=== PATIENT | female | born 1945 | race Caucasian/White ===

== ENCOUNTER 2018-03-22 10:10 | Emergency (ER) | payer MEDICARE, OTHER ==
[2018-03-22] MEDS ORDERED: ASPIRIN 81 MG TABLET, CHEWABLE PO ONE (10:32)
--- NOTE | 2018-03-22 10:33 | ER Document Report ---
ED Medical Screen (RME) - General Chief Complaint: Flank Pain Stated Complaint: ABODOMINAL/BACK PAIN Time Seen by Provider: 03/22/18 10:31 Notes: 72 years old female on metoprolol, Cardizem, flecainide for atrial fibrillation presents today with nearly 2 weeks history of on and off dizziness lightheadedness and one time passed out. And feeling dizzy. Denies any fever chills denies any chest pain denies any palpitation. Denies any other constitutional symptoms. TRAVEL OUTSIDE OF THE [place] IN LAST 30 DAYS: No - Related Data Allergies/Adverse Reactions: Iodine and Iodide Containing Produc Allergy (Verified 03/22/18 10:11) Penicillins Allergy (Verified 03/22/18 10:11) Past Medical History Renal/ Medical History: Denies: Hx Peritoneal Dialysis Physical Exam - Vital signs Vitals: Temp Pulse Resp BP Pulse Ox 98.1 F 82 16 153/76 H 96 03/22/18 10:31 03/22/18 10:31 03/22/18 10:31 03/22/18 10:31 03/22/18 10:31 Course - Vital Signs Vital signs: Temp Pulse Resp BP Pulse Ox 98.1 F 82 16 153/76 H 96 03/22/18 10:31 03/22/18 10:31 03/22/18 10:31 03/22/18 10:31 03/22/18 10:31 Doctor's Discharge - Discharge Referrals: JAY BRAXTON PA-C [Primary Care Provider] - Follow up as needed
[2018-03-22 10:59] LABS: ABSOLUTE BASOPHILS # (AUTO) 0.1 10^3/uL (0.0-0.2); ABSOLUTE EOSINOPHILS # (AUTO) 0.3 10^3/uL (0.0-0.6); ABSOLUTE LYMPHOCYTES (AUTO) 3.1 10^3/uL (0.5-4.7); ABSOLUTE MONOCYTES (AUTO) 0.8 10^3/uL (0.1-1.4); ABSOLUTE NEUT (AUTO) 5.9 10^3/uL (1.7-8.2); BASOPHILS % (AUTO) 0.8 % (0-2); EOSINOPHILS % (AUTO) 2.6 % (0-6); HEMATOCRIT 42.4 % (36.0-47.0); HEMOGLOBIN 14.4 g/dL (12.0-15.5); LYMPHOCYTES % (AUTO) 30.5 % (13-45); MEAN CORPUSCULAR HEMOGLOBIN 29.4 pg (27.0-33.4); MEAN CORPUSCULAR HGB CONC 34.1 g/dL (32.0-36.0); MEAN CORPUSCULAR VOLUME 86 fl (80-97); MONOCYTES % (AUTO) 7.9 % (3-13); PLATELET COUNT 262 10^3/uL (150-450); RED BLOOD COUNT 4.92 10^6/uL (3.72-5.28); RED CELL DISTRIBUTION WIDTH 14.9 % (11.5-14.0); SEGMENTED NEUTROPHILS % (AUTO) 58.2 % (42-78); TOTAL CELLS COUNTED % (AUTO) 100 %; WHITE BLOOD COUNT 10.2 10^3/uL (4.0-10.5)
[2018-03-22 11:14] LABS: ALBUMIN 4.1 g/dL (3.5-5.0); ASPARTATE AMINO TRANSFERASE 19 U/L (14-36); BLOOD UREA NITROGEN 16 mg/dL (7-20); CARBON DIOXIDE 29 mmol/L (22-30); GLUCOSE 172 mg/dL (75-110); NEONATAL BILIRUBIN RESULT 0.8 mg/dL (0.1-1.1)
[2018-03-22 11:18] LABS: ALANINE AMINOTRANSFERASE 19 U/L (9-52); ALKALINE PHOSPHATASE 71 U/L (38-126); CALCIUM 9.6 mg/dL (8.4-10.2); CREATINE KINASE 66 U/L (30-135)
[2018-03-22 11:20] LABS: ANION GAP 13 (5-19); CHLORIDE 101 mmol/L (98-107); SODIUM 142.9 mmol/L (137-145)
[2018-03-22 11:22] LABS: BILIRUBIN,DIRECT 0.2 mg/dL (0.0-0.4)
[2018-03-22 11:25] LABS: CREATINE KINASE MB 0.49 ng/mL (<4.55)
[2018-03-22 11:27] LABS: TROPONIN I < 0.012 ng/mL
--- NOTE | 2018-03-22 11:47 | ER Document Report ---
ED General - General Chief Complaint: Flank Pain Stated Complaint: ABODOMINAL/BACK PAIN Time Seen by Provider: 03/22/18 10:31 TRAVEL OUTSIDE OF THE [place] IN LAST 30 DAYS: No - HPI Notes: Patient is a 72-year-old female with a history of paroxysmal A. fib (on Xarelto) , hypertension, type 2 diabetes, acid reflux, anxiety, prev CA lower abd who presents to the ED with vague symptoms of feeling that she has a split second of losing consciousness, but regaining it immediately with no other residual effects. Patient describes this as seeing a flash in front of both of her eyes and then feeling like she passes out, but does not lose consciousness completely. She has never had any other issues with her vision and has regular eye exams per pt. Patient states that by standards cannot even tell when she has an episode. Patient states that she had 4 episodes yesterday 1 of which she was walking to the bathroom and then had the symptoms, but did not fall. Patient states that after the split second she completed her walk to the bathroom without difficulties. A couple of the other episodes were when she was sitting down. She has not noticed any changes in her symptoms from standing , walking, or sitting. Patient states that this has been going on for 1-2 months. Patient states that there are days where she has no problems. Patient states that she did not have any symptoms today of that. Patient states that she has been evaluated previously by her primary care doctor, but they did not order anything for her. Patient states that she does not notice a correlation between when she goes into A. fib and the symptoms. Patient states that she has been in rhythm recently. She has been taking her medicines as directed. Patient states that she has been eating and drinking without difficulties and is urinating normally as well as having normal bowel movements. Patient states that she has chronic abdominal pain from her cancer surgery which has remained unchanged for her. Patient states that she has had some lower back soreness that will occasionally radiate around to her sides bilaterally and is worse with movements. Patient denies any injury to the area. She has no other concerns or complaints. Denies any headache, fever, head injury, neck pain, changes in speech/mentation/hearing, URI, sore throat, chest pain, palpitations , syncope, cough, shortness of breath, wheeze, dyspnea, nausea/vomiting/diarrhea , urinary retention, dysuria, hematuria, loss of control of bowel or bladder, numbness/tingling, saddle anesthesia, muscle paralysis/weakness, or rash. - Related Data Allergies/Adverse Reactions: Iodine and Iodide Containing Produc Allergy (Verified 03/22/18 10:11) Penicillins Allergy (Verified 03/22/18 10:11) Past Medical History - Social History Smoking Status: Never Smoker Family History: Reviewed & Not Pertinent Patient has suicidal ideation: No Patient has homicidal ideation: No Renal/ Medical History: Denies: Hx Peritoneal Dialysis Review of Systems - Review of Systems -: Yes All other systems reviewed and negative Physical Exam - Vital signs Vitals: Temp Pulse Resp BP Pulse Ox 98.1 F 82 16 153/76 H 96 03/22/18 10:31 03/22/18 10:31 03/22/18 10:31 03/22/18 10:31 03/22/18 10:31 - Notes Notes: PHYSICAL EXAMINATION: GENERAL: Well-appearing, well-nourished and in no acute distress. A&Ox4. Answers questions appropriately. HEAD: Atraumatic, normocephalic. Non-tender. EYES: Pupils equal round and reactive to light, extraocular movements intact, sclera anicteric, conjunctiva are normal. No nystagmus. vis basurto intact. No nystagmus. ENT: EAC clear b/l. TM's intact b/l without erythema, fluid, or perforation. Nares patent and without discharge. oropharynx clear without exudates. No tonsilar hypertrophy or erythema. Moist mucous membranes. No sinus tenderness. NECK: Normal range of motion, supple without lymphadenopathy. No rigidity/ meningismus. No midline tenderness. LUNGS: Breath sounds clear to auscultation bilaterally and equal. No wheezes rales or rhonchi. HEART: Regular rate and rhythm without murmurs, rubs, gallops. ABDOMEN: Soft, nontender, nondistended abdomen. No guarding, no rebound. Normal bowel sounds present. No CVA tenderness bilaterally. Musculoskeletal: Ext b/l: FROM to passive/active. Strength 5+/5. No deficits noted. No bony tenderness of extremities. Back: FROM to passive/active. Strength 5+/5. No vertebral point tenderness, stepoffs, or deformities. No other bony tenderness, erythema, swelling, or ecchymosis. SLR negative b/l. + mild tenderness to the L-paraspinal mm b/l. No SI jt tenderness. No foot drop Extremities: No cyanosis, clubbing, or edema b/l. Peripheral pulses 2+. Capillary refill less than 2 seconds. NEUROLOGICAL: NIH 0. GCS 15. Cranial nerves grossly intact. Normal speech, normal gait. Normal sensory, motor exams. Reflexes 2+ b/l. NICOL's negative. Pronator drift negative. Heel/sosa, finger/nose wnl. Rhomberg neg. PSYCH: Normal mood, normal affect. SKIN: Warm, Dry, normal turgor, no rashes or lesions noted. Course - Re-evaluation Re-evalutation: 03/22/18 13:55 Patient is an afebrile, well-hydrated 72-year-old female who presents to the ED with vague feeling of light-headedness, chronic abd pain, and low back pain. Vitals are acceptable without any significant tachycardia, tachypnea, or hypoxia. PE is otherwise unremarkable. Patient is nontoxic-appearing and is tolerating p.o. without any difficulties. Pt is currently asymptomatic for her head complaint(s). CBC, CMP, EKG/cardiac enzymes, magn, phosph, tsh, UA, chest x-ray are all unremarkable for any acute pathology. Patient has a heart score of 3, Wells score of 0. Patient does not have any chest pain, dyspnea, or shortness of breath. Patient's presentation and symptomatology creates low suspicion for ACS, PE, pneumothorax, pericarditis, dissection, respiratory compromise, severe dehydration, sepsis, meningitis, disc herniation causing severe spinal stenosis, spinal abscess, cauda equina, acute intracranial pathology, or other systemic emergent condition at this time. Patient is aware that this condition can change from initial presentation and she needs to monitor symptoms closely and seek medical attention for any acute changes. Reviewed with Dr. Vicente who is in agreement with dispo/plan. Recommend conservative measures for symptoms. Recheck with your PCM in 2-3 days. Consider consult with Cardiology. Return to the ED with any worsening/ concerning symptoms otherwise as reviewed in discharge. Patient is in agreement. - Vital Signs Vital signs: Temp Pulse Resp BP Pulse Ox 98.1 F 69 14 155/80 H 86 L 03/22/18 10:31 03/22/18 13:01 03/22/18 13:00 03/22/18 13:01 03/22/18 13:00 - Laboratory Result Diagrams: 03/22/18 10:45 03/22/18 10:45 Laboratory results interpreted by me: 03/22/18 03/22/18 03/22/18 10:45 10:45 11:30 RDW 14.9 H Glucose 172 H Urine Blood SMALL H Discharge - Discharge Clinical Impression: Light headedness, Visual disturbance, Chronic abdominal pain Low back pain Qualifiers: Chronicity: acute Back pain laterality: bilateral Sciatica presence: without sciatica Qualified Code(s): M54.5 - Low back pain Condition: Stable Disposition: HOME, SELF-CARE Instructions: Abdominal Pain ([facility]), Low Back Pain ([facility]), Stretching Exercises for the Back ([facility]) Additional Instructions: Rest, Ice, Compression Tylenol/ibuprofen as needed Light stretches daily Strength exercises as able healthy diet, maintain hydration Moist heat and massage may help F/u with your PCP in 3-5 days for a recheck Consider consult(s) with Cardiology for ongoing/worsening symptoms Return to the ED with any worsening symptoms and/or development of fever, headache, changes in behavior/mentation/vision/speech, chest pain, palpitations , syncope, shortness of breath, trouble breathing, abdominal pain, n/v/d, blood in stool/urine, loss of control of bowel/bladder, urinary retention, muscle weakness/paralysis, saddle anesthesia, numbness/tingling, or other worsening symptoms that are concerning to you. Forms: Elevated Blood Pressure Referrals: JAY BRAXTON PA-C [Primary Care Provider] - 03/26/18
--- NOTE | 2018-03-22 12:12 | RADIOLOGY REPORT (SQ) ---
EXAM DESCRIPTION: CT HEAD WITHOUT COMPLETED DATE/TIME: 03/22/2018 11:57 am REASON FOR STUDY: visual disturbance COMPARISON: None. TECHNIQUE: Axial images acquired through the brain without intravenous contrast. Images reviewed wi th bone, brain and subdural windows. Additional sagittal and coronal reconstructions were generated. Images stored on PACS. All CT scanners at this facility use dose modulation, iterative reconstruction, and/or weight based d osing when appropriate to reduce radiation dose to as low as reasonably achievable (ALARA). [facility]: Dose Right [facility]: CareDose [facility]: Dose Right [facility]: Teradose 4D [facility]: Digital Ally RADIATION DOSE: CT Rad equipment meets quality standard of care and radiation dose reduction techniq ues were employed. CTDIvol: 53.2 mGy. DLP: 964 mGy-cm. mGy. LIMITATIONS: None. FINDINGS: VENTRICLES: Normal size and contour. CEREBRUM: No masses. No hemorrhage. No midline shift. No evidence for acute infarction. Normal gra y/white matter differentiation. No areas of low density in the white matter. CEREBELLUM: No masses. No hemorrhage. No alteration of density. No evidence for acute infarction. EXTRAAXIAL SPACES: No fluid collections. No masses. ORBITS AND GLOBE: No intra- or extraconal masses. Normal contour of globe without masses. CALVARIUM: No fracture. PARANASAL SINUSES: No fluid or mucosal thickening. SOFT TISSUES: No mass or hematoma. OTHER: No other significant finding. IMPRESSION: NORMAL BRAIN CT WITHOUT CONTRAST. EVIDENCE OF ACUTE STROKE: NO. COMMENT: Quality ID # [id number]: Final reports with documentation of one or more dose reduction techniques (e.g., Automated exposure control, adjustment of the mA and/or kV according to patient size, use of iterative reconstruction technique) TECHNICAL DOCUMENTATION: JOB ID: [id number] [employer]- All Rights Reserved Reading location - IP/workstation name: [email or web address]
--- NOTE | 2018-03-22 12:14 | RADIOLOGY REPORT (SQ) ---
EXAM DESCRIPTION: CHEST SINGLE VIEW COMPLETED DATE/TIME: 03/22/2018 11:57 am REASON FOR STUDY: Cough COMPARISON: None. EXAM PARAMETERS: NUMBER OF VIEWS: One view. TECHNIQUE: Single frontal radiographic view of the chest acquired. RADIATION DOSE: NA LIMITATIONS: None. FINDINGS: LUNGS AND PLEURA: No opacities, masses or pneumothorax. No pleural effusion. MEDIASTINUM AND HILAR STRUCTURES: No masses. Contour normal. HEART AND VASCULAR STRUCTURES: Heart normal in size. Normal vasculature. BONES: No acute findings. HARDWARE: None in the chest. OTHER: No other significant finding. IMPRESSION: NO ACUTE RADIOGRAPHIC FINDING IN THE CHEST. TECHNICAL DOCUMENTATION: JOB ID: [id number] [employer]- All Rights Reserved Reading location - IP/workstation name: [email or web address]
--- NOTE | 2018-03-22 12:17 | RADIOLOGY REPORT (SQ) ---
EXAM DESCRIPTION: L SPINE WHOLE COMPLETED DATE/TIME: 03/22/2018 11:57 am REASON FOR STUDY: low back pain COMPARISON: None. NUMBER OF VIEWS: Five views including obliques. TECHNIQUE: AP, lateral, oblique, and sacral radiographic images acquired of the lumbar spine. LIMITATIONS: None. FINDINGS: MINERALIZATION: Normal. SEGMENTATION: Normal. No transitional anatomy. ALIGNMENT: Normal. VERTEBRAE: No acute fracture. DISCS: Multilevel disc space narrowing with osteophytes. POSTERIOR ELEMENTS: Pedicles and facets are intact. No pars defect or posterior arch defects. Facet arthropathy is present. HARDWARE: None in the spine. PARASPINAL SOFT TISSUES: Normal. PELVIS: Intact as visualized. No fractures or worrisome bone lesions. SI joints intact. OTHER: No other significant finding. IMPRESSION: Spondylosis. No acute findings. TECHNICAL DOCUMENTATION: JOB ID: [id number] [employer]- All Rights Reserved Reading location - IP/workstation name: [email or web address]
[2018-03-22 13:38] VITALS: BP 170/73
[2018-03-22 14:05] LABS: APPEARANCE,URINE CLEAR; BILIRUBIN,URINE NEGATIVE (NEGATIVE); COLOR,URINE STRAW; GLUCOSE, URINE NEGATIVE (NEGATIVE); KETONES,URINE NEGATIVE (NEGATIVE); LEUKOCYTE ESTERASE,URINE NEGATIVE (NEGATIVE); NITRITE,URINE NEGATIVE (NEGATIVE); PROTEIN,URINE NEGATIVE (NEGATIVE); URINE SPECIFIC GRAVITY 1.006; UROBILINOGEN,URINE NEGATIVE mg/dL (<2.0)
--- NOTE | 2018-03-22 14:10 | EKG REPORT ---
SEVERITY:- ABNORMAL ECG - SINUS RHYTHM PROBABLE LEFT ATRIAL ABNORMALITY DIFFUSE NONSPECIFIC ST-T CHANGES. : Confirmed by: Mich Corey MD 22-Mar-2018 14:09:48
== END 2018-03-22 14:42 | disposition home or self-care (01) ==
LOC: ER 10:10
DX: R42 Dizziness and giddiness (principal); H53.8 Other visual disturbances; M54.5 Low back pain; R10.9 Unspecified abdominal pain; G89.29 Other chronic pain; I48.0 Paroxysmal atrial fibrillation; Z79.01 Long term (current) use of anticoagulants; I10 Essential (primary) hypertension; E11.9 Type 2 diabetes mellitus without complications; Z98.890 Other specified postprocedural states
CPT/HCPCS: 93005; 99285; 36415; 87086; 82553; 82550; 83735; 84100; 84443; 85025; 80053; 81001; 84484; 71045; 72110; 70450; 93010; A9270

== ENCOUNTER 2019-09-24 14:43 | Observation (INO) | payer MEDICARE ==
--- NOTE | 2019-09-24 15:06 | ER Document Report ---
ED Medical Screen (RME) - General Chief Complaint: High Blood Pressure Stated Complaint: HIGH BLOOD PRESSURE Time Seen by Provider: 09/24/19 14:59 Primary Care Provider: JAY BRAXTON PA-C [Primary Care Provider] - Follow up as needed Information source: Patient Notes: Patient presents complaining of elevated blood pressure. Patient states she has had mild headache pain and some chest tightness. Patient states yesterday she had near syncopal episode. Patient reports some mild shortness of breath and nausea. Patient with a history of diabetes, hypertension and A. fib. I have greeted and performed a rapid initial assessment of this patient. A comprehensive ED assessment and evaluation of the patient, analysis of test results and completion of the medical decision making process will be conducted by additional ED providers. TRAVEL OUTSIDE OF THE [place] IN LAST 30 DAYS: No - Related Data Allergies/Adverse Reactions: Iodine and Iodide Containing Produc Allergy (Verified 03/22/18 10:11) Penicillins Allergy (Verified 03/22/18 10:11) Past Medical History - Social History Chew tobacco use (# tins/day): No Frequency of alcohol use: None Drug Abuse: None Renal/ Medical History: Denies: Hx Peritoneal Dialysis Physical Exam - Vital signs Vitals: Temp Pulse Resp BP Pulse Ox 98.4 F 98 16 210/103 H 93 09/24/19 14:50 09/24/19 14:50 09/24/19 14:50 09/24/19 14:50 09/24/19 14:50 - Cardiovascular Rhythm: Regular Heart sounds: S1 appreciated, S2 appreciated - Neurological Zayra Coma Scale Eye Opening: Spontaneous Zayra Coma Scale Verbal: Oriented Angier Coma Scale Motor: Obeys Commands Angier Coma Scale Total: 15 Course - Vital Signs Vital signs: Temp Pulse Resp BP Pulse Ox 98.4 F 98 16 210/103 H 93 09/24/19 14:50 09/24/19 14:50 09/24/19 14:50 09/24/19 14:50 09/24/19 14:50 Doctor's Discharge - Discharge Referrals: JAY BRAXTON PA-C [Primary Care Provider] - Follow up as needed
[2019-09-24 15:44] LABS: ABSOLUTE BASOPHILS # (AUTO) 0.1 10^3/uL (0.0-0.2); ABSOLUTE EOSINOPHILS # (AUTO) 0.2 10^3/uL (0.0-0.6); ABSOLUTE LYMPHOCYTES (AUTO) 2.7 10^3/uL (0.5-4.7); ABSOLUTE MONOCYTES (AUTO) 0.6 10^3/uL (0.1-1.4); ABSOLUTE NEUT (AUTO) 6.1 10^3/uL (1.7-8.2); BASOPHILS % (AUTO) 0.6 % (0-2); EOSINOPHILS % (AUTO) 1.8 % (0-6); HEMATOCRIT 45.1 % (36.0-47.0); HEMOGLOBIN 15.4 g/dL (12.0-15.5); LYMPHOCYTES % (AUTO) 28.2 % (13-45); MEAN CORPUSCULAR HEMOGLOBIN 30.6 pg (27.0-33.4); MEAN CORPUSCULAR HGB CONC 34.2 g/dL (32.0-36.0); MEAN CORPUSCULAR VOLUME 89 fl (80-97); MONOCYTES % (AUTO) 6.2 % (3-13); PLATELET COUNT 240 10^3/uL (150-450); RED BLOOD COUNT 5.05 10^6/uL (3.72-5.28); RED CELL DISTRIBUTION WIDTH 15.3 % (11.5-14.0); SEGMENTED NEUTROPHILS % (AUTO) 63.2 % (42-78); TOTAL CELLS COUNTED % (AUTO) 100 %; WHITE BLOOD COUNT 9.7 10^3/uL (4.0-10.5)
--- NOTE | 2019-09-24 15:47 | RADIOLOGY REPORT (SQ) ---
EXAM DESCRIPTION: CT HEAD WITHOUT COMPLETED DATE/TIME: 09/24/2019 3:37 pm REASON FOR STUDY: HERNANDEZ, HTN COMPARISON: 03/22/2018. TECHNIQUE: Axial images acquired through the brain without intravenous contrast. Images reviewed wi th bone, brain and subdural windows. Additional sagittal and coronal reconstructions were generated. Images stored on PACS. All CT scanners at this facility use dose modulation, iterative reconstruction, and/or weight based d osing when appropriate to reduce radiation dose to as low as reasonably achievable (ALARA). [facility]: Dose Right [facility]: CareDose [facility]: Dose Right [facility]: Teradose 4D [facility]: [employer] RADIATION DOSE: CT Rad equipment meets quality standard of care and radiation dose reduction techniq ues were employed. CTDIvol: 53.2 mGy. DLP: 964 mGy-cm. mGy. LIMITATIONS: None. FINDINGS: VENTRICLES: Prominent. CEREBRUM: No masses. No hemorrhage. No midline shift. Areas of low density in the white matter mos t likely due to chronic micro-vascular ischemic change. No evidence for acute infarction. CEREBELLUM: No masses. No hemorrhage. No alteration of density. No evidence for acute infarction. EXTRAAXIAL SPACES: Mild age-related involutional change. No fluid collections. No masses. ORBITS AND GLOBE: No intra- or extraconal masses. Normal contour of globe without masses. CALVARIUM: No fracture. PARANASAL SINUSES: No fluid or mucosal thickening. SOFT TISSUES: No mass or hematoma. OTHER: No other significant finding. IMPRESSION: MILD CHRONIC CHANGES OF ATROPHY AND MICROVASCULAR ISCHEMIA. NO ACUTE PROCESS. EVIDENCE OF ACUTE STROKE: NO. TECHNICAL DOCUMENTATION: JOB ID: [id number] Quality ID # [id number]: Final reports with documentation of one or more dose reduction techniques (e.g., Au tomated exposure control, adjustment of the mA and/or kV according to patient size, use of iterative reconstruction technique) 2010 [email or web address]- All Rights Reserved Reading location - IP/workstation name: [email or web address]
[2019-09-24 15:51] LABS: ALBUMIN 4.7 g/dL (3.5-5.0); ALKALINE PHOSPHATASE 80 U/L (38-126); ANION GAP 13 (5-19); ASPARTATE AMINO TRANSFERASE 31 U/L (14-36); BILIRUBIN,DIRECT 0.3 mg/dL (0.0-0.4); BILIRUBIN,TOTAL 0.8 mg/dL (0.2-1.3); BLOOD UREA NITROGEN 17 mg/dL (7-20); CALCIUM 10.2 mg/dL (8.4-10.2); CARBON DIOXIDE 26 mmol/L (22-30); CHLORIDE 101 mmol/L (98-107); GLUCOSE 163 mg/dL (75-110); POTASSIUM 3.8 mmol/L (3.6-5.0); TOTAL PROTEIN 7.8 g/dL (6.3-8.2)
--- NOTE | 2019-09-24 15:52 | RADIOLOGY REPORT (SQ) ---
EXAM DESCRIPTION: CHEST 2 VIEWS COMPLETED DATE/TIME: 09/24/2019 3:42 pm REASON FOR STUDY: cp COMPARISON: 03/22/2018. EXAM PARAMETERS: NUMBER OF VIEWS: two views TECHNIQUE: Digital Frontal and Lateral radiographic views of the chest acquired. RADIATION DOSE: NA LIMITATIONS: none FINDINGS: LUNGS AND PLEURA: Diffuse interstitial prominence. No infiltrates, masses or pneumothorax . No pleural effusion. MEDIASTINUM AND HILAR STRUCTURES: No masses or contour abnormalities. HEART AND VASCULAR STRUCTURES: Mild cardiomegaly. BONES: No acute findings. Degenerative changes in the spine. HARDWARE: Clips in the upper abdomen. OTHER: No other significant finding. IMPRESSION: MILD CARDIOMEGALY. DIFFUSE INTERSTITIAL PROMINENCE PROBABLY DUE TO SCARRING. CANNOT EX CLUDE A COMPONENT OF INTERSTITIAL EDEMA. TECHNICAL DOCUMENTATION: JOB ID: [id number] 2010 [employer]- All Rights Reserved Reading location - IP/workstation name: [email or web address]
--- NOTE | 2019-09-24 17:55 | ER Document Report ---
ED General - General Chief Complaint: High Blood Pressure Stated Complaint: HIGH BLOOD PRESSURE Time Seen by Provider: 09/24/19 14:59 Primary Care Provider: JAY BRAXTON PA-C [Primary Care Provider] - Follow up as needed Notes: HPI: 74-year-old female with past medical history as recorded who presents today with multiple concerns/complaints. Patient states last night while she was laying in bed she had a "syncopal episode". She states she felt a little warm prior to the episode. No chest pain or palpitations at that time. No headache or weakness or numbness. Patient had multiple episodes previously like this last year. She had a cardiac catheterization showing no blockage but possibly dysrhythmias. She was started on flecainide. Dr. Prather is her advertising copywriter. She states this morning she noticed that she had an elevated blood pressure of 200/100 and a mild frontal headache. No blurry vision, weakness or numbness. She states she also had a 10-minute episode of transient nonradiating chest "pressure". Headache and chest pain resolved this morning. No abdominal pain, back pain, calf pain or leg swelling, or shortness of breath. ROS: See HPI All other review of systems reviewed and otherwise negative Reviewed vital signs and nursing note as charted by RN. PHYSICAL EXAM: CONSTITUTIONAL: Alert and oriented and responds appropriately to questions. Well-appearing; well-nourished HEAD: Normocephalic; atraumatic EYES: PERRL; full extraocular range of motion with no nystagmus noted ENT: Normal nose; no rhinorrhea; moist mucous membranes; pharynx without lesions noted NECK: Supple without meningismus; non-tender; no cervical lymphadenopathy, no masses CARD: Regular rate and rhythm; no murmurs; symmetric distal pulses RESP: Normal chest excursion without splinting or tachypnea; breath sounds clear and equal bilaterally; no wheezes, no rhonchi, no rales ABD/GI: Normal bowel sounds; non-distended; soft, non-tender; no palpable organomegaly or masses BACK: The back appears normal and is non-tender to palpation EXT: Normal ROM in all joints; non-tender to palpation; no edema SKIN: No acute lesions noted NEURO: CN 2-12 intact; 5/5 bilateral upper and lower extremity strength with sensation intact to light touch PSYCH: The patient's mood and manner are appropriate. Grooming and personal hygiene are appropriate. TRAVEL OUTSIDE OF THE [place] IN LAST 30 DAYS: No - Related Data Allergies/Adverse Reactions: Iodine and Iodide Containing Produc Allergy (Verified 03/22/18 10:11) Penicillins Allergy (Verified 03/22/18 10:11) Past Medical History - General Information source: Patient - Social History Smoking Status: Never Smoker Chew tobacco use (# tins/day): No Frequency of alcohol use: None Drug Abuse: None Family History: Reviewed & Not Pertinent Patient has suicidal ideation: No Patient has homicidal ideation: No - Past Medical History Cardiac Medical History: Reports: Hx Atrial Fibrillation, Hx Hypertension Renal/ Medical History: Denies: Hx Peritoneal Dialysis Physical Exam - Vital signs Vitals: Temp Pulse Resp BP Pulse Ox 98.4 F 98 16 210/103 H 93 09/24/19 14:50 09/24/19 14:50 09/24/19 14:50 09/24/19 14:50 09/24/19 14:50 Course - Re-evaluation Re-evalutation: Given the constellation of symptoms, patient has been placed on the monitor, and we will perform a CT scan of the head, x-ray of the chest, cardiac panel, EKG, and reassess. EKG shows a left bundle branch block, old EKG here from February 2018 shows inverted T waves V2 through V6 09/24/19 17:52 Labs, imaging, and EKG as recorded. Blood pressure is now 186/90 without intervention. Patient denies any headache, blurry vision, or chest pain. Given that the patient was started on flecainide 3 months ago with a syncopal-like episode with elevated blood pressure, transient chest pain, I do believe the patient will require observation with possibly adjustments of her flecainide while on the monitor overnight with cardiac consultation. - Vital Signs Vital signs: Temp Pulse Resp BP Pulse Ox 98.4 F 98 21 H 191/109 H 93 09/24/19 14:50 09/24/19 14:50 09/24/19 17:01 09/24/19 17:01 09/24/19 17:01 - Laboratory Result Diagrams: 09/24/19 15:10 09/24/19 15:10 Laboratory results interpreted by me: 09/24/19 09/24/19 15:10 15:10 RDW 15.3 H Est GFR (MDRD) Non-Af 58 L Glucose 163 H Discharge - Discharge Clinical Impression: Elevated blood pressure reading, Syncope and collapse Chest pain Qualifiers: Chest pain type: unspecified Qualified Code(s): R07.9 - Chest pain, unspecified Condition: Fair Disposition: ADMITTED OBSERVATION Admitting Provider: Fernandez (Hospitalist) Unit Admitted: Telemetry Referrals: JAY BRAXTON PA-C [Primary Care Provider] - Follow up as needed
[2019-09-24] MEDS ORDERED: OXYCODONE-ACETAMINOPHEN 5-325 MG TABLET PO PRN (18:37)
[2019-09-24] MEDS ORDERED: ONDANSETRON HCL INJ/PF 4 MG/2 ML SDV IV PRN (18:37)
[2019-09-24] MEDS ORDERED: ONDANSETRON 4 MG TAB.RAPDIS PO PRN (18:37)
[2019-09-24] MEDS ORDERED: MAG HYDROX/AL HYDROX/SIMETH SUSP 30 ML UDCUP PO PRN (18:37)
[2019-09-24] MEDS ORDERED: MORPHINE SULFATE 10 MG/ML INJ IV PRN (18:46)
[2019-09-24] MEDS ORDERED: NITROGLYCERIN 0.4 MG/TAB 25 TAB/BOTTLE SL PRN (18:46)
[2019-09-24] MEDS ORDERED: HYDRALAZINE HCL INJ/PF 20 MG/1 ML SDV IV PRN (18:52)
--- NOTE | 2019-09-24 18:52 | EKG REPORT ---
SEVERITY:- ABNORMAL ECG - SINUS RHYTHM LEFT BUNDLE BRANCH BLOCK : Confirmed by: Mich Corey MD 24-Sep-2019 18:51:58
--- NOTE | 2019-09-24 18:56 | PDOC H&P ---
History of Present Illness Admission Date/PCP: 09/24/19 18:16 JAY BRAXTON PA-C History of Present Illness: KIRSTIN DAVID is a 74 year old female comes in with a history that last night she felt lightheaded and may have had a syncopal episode lasting maybe 1 second. States she has had these in the past. Will get tunnel vision and feel lightheaded and then possibly have a vasovagal episode. Today her blood pressures been running high 219/113 according to the patient. Takes this at home herself.. States that usually her pressures about 160/90 Patient states that and 2018 she was diagnosed with atrial fib in May 2019 she had a cath in [place] and it was clean showing no coronary disease. Since she is been to Dr. Martin who is started her on flecainide about a month or 2 ago. Comes in tonight at her family's insistence because she states she really does not feel that bad tonight.. Specifically no true chest pain. Patient will be admitted tonight and ruled out and tomorrow she will see her supervisor instrument repair for further evaluation Past Medical History Cardiac Medical History: Reports: Atrial Fibrillation, Hypertension Social History Smoking Status: Never Smoker Electronic Cigarette use?: No - Advance Directive Resuscitation Status: Full Code Family History Family History: Reviewed & Not Pertinent Parental Family History Reviewed: No Children Family History Reviewed: No Sibling(s) Family History Reviewed.: No Medication/Allergy Allergies/Adverse Reactions: Iodine and Iodide Containing Produc Allergy (Verified 03/22/18 10:11) Penicillins Allergy (Verified 03/22/18 10:11) Review of Systems Constitutional: PRESENT: other - Lightheaded Cardiovascular: ABSENT: chest pain, dyspnea on exertion, edema, orthropnea, palpitations Respiratory: ABSENT: cough, hemoptysis Gastrointestinal: PRESENT: nausea Neurological: ABSENT: abnormal gait, abnormal speech, confusion, dizziness, focal weakness, syncope Psychiatric: ABSENT: anxiety, depression, homidical ideation, suicidal ideation Physical Exam Vital Signs: Temp Pulse Resp BP Pulse Ox 98.4 F 98 21 H 191/109 H 93 09/24/19 14:50 09/24/19 14:50 09/24/19 17:01 09/24/19 17:01 09/24/19 17:01 Intake & Output 09/23/19 09/24/19 09/25/19 06:59 06:59 06:59 Weight 71.7 kg General appearance: PRESENT: no acute distress Respiratory exam: PRESENT: clear to auscultation matthew. ABSENT: rales, rhonchi, wheezes Cardiovascular exam: PRESENT: RRR. ABSENT: diastolic murmur, rubs, systolic murmur Neurological exam: PRESENT: alert, awake, oriented to person, oriented to place, oriented to time, oriented to situation, CN II-XII grossly intact. ABSENT: m otor sensory deficit Psychiatric exam: PRESENT: appropriate affect, normal mood. ABSENT: homicidal ideation, suicidal ideation Results Laboratory Results: 09/24/19 15:10 09/24/19 15:10 09/24/19 09/24/19 15:10 15:10 WBC 9.7 RBC 5.05 Hgb 15.4 Hct 45.1 MCV 89 MCH 30.6 MCHC 34.2 RDW 15.3 H Plt Count 240 Seg Neutrophils % 63.2 Sodium 140.3 Potassium 3.8 Chloride 101 Carbon Dioxide 26 Anion Gap 13 BUN 17 Creatinine 0.95 Est GFR ( Amer) > 60 Glucose 163 H Calcium 10.2 Total Bilirubin 0.8 AST 31 Alkaline Phosphatase 80 Total Protein 7.8 Albumin 4.7 09/24/19 15:10 Troponin I < 0.012 Impressions: Chest X-Ray 09/24/19 15:04 IMPRESSION: MILD CARDIOMEGALY. DIFFUSE INTERSTITIAL PROMINENCE PROBABLY DUE TO SCARRING. CANNOT EXCLUDE A COMPONENT OF INTERSTITIAL EDEMA. Head CT 09/24/19 15:04 IMPRESSION: MILD CHRONIC CHANGES OF ATROPHY AND MICROVASCULAR ISCHEMIA. NO ACUTE PROCESS. EVIDENCE OF ACUTE STROKE: NO. Assessment and Plan - Diagnosis (1) Chronic paroxysmal atrial fib Is this a current diagnosis for this admission?: Yes (2) Chest pain Qualifiers: Chest pain type: unspecified Qualified Code(s): R07.9 - Chest pain, unspecified Is this a current diagnosis for this admission?: Yes (3) Elevated blood pressure reading Is this a current diagnosis for this admission?: Yes (4) Syncope and collapse Is this a current diagnosis for this admission?: Yes - Plan Summary Summary: Will be placed in observation status, she will have troponins x3, she will see her supervisor instrument repair in the morning, According to patient she had a cardiac cath in May 2019 that showed no significant cardiac disease. She appears to be medically stable. - Time Time Spent with patient: 35 or more minutes
[2019-09-24] MEDS: FAMOTIDINE 20 MG TABLET PO SCH (21:30)
[2019-09-24 21:37] LABS: CREATINE KINASE MB 1.55 ng/mL (<4.55)
[2019-09-24] MEDS ORDERED: RIVAROXABAN 10 MG TABLET PO SCH (22:00)
[2019-09-24 22:02] LABS: TROPONIN I 0.216 ng/mL
[2019-09-24] MEDS ORDERED: ALPRAZOLAM 0.25 MG TABLET PO PRN (22:14)
[2019-09-24] MEDS ORDERED: METOPROLOL TARTRATE 25 MG TABLET PO ONE (23:00)
[2019-09-24] MEDS ORDERED: LISINOPRIL 10 MG TABLET PO ONE (23:00)
[2019-09-24] MEDS ORDERED: ZOLPIDEM TARTRATE 5 MG TABLET PO ONE (23:00)
[2019-09-24] MEDS ORDERED: FLECAINIDE ACETATE 100 MG TABLET PO ONE (23:00)
[2019-09-24] MEDS: ACETAMINOPHEN 325 MG TABLET PO PRN (23:00)
[2019-09-24] MEDS ORDERED: FLECAINIDE ACETATE 100 MG TABLET ONE (23:43)
[2019-09-25] MEDS ORDERED: GLUCAGON,HUMAN RECOMB 1 MG INJ IM PRN (01:00)
[2019-09-25] MEDS ORDERED: DEXTROSE 40% GEL 15 GM TUBE PO PRN (01:00)
[2019-09-25] MEDS ORDERED: DEXTROSE 40% GEL 15 GM TUBE X 2 PO PRN (01:00)
[2019-09-25] MEDS ORDERED: DEXTROSE 50%-WATER SYRINGE 25 GM/50 ML DOSE IV PRN (01:00)
[2019-09-25] MEDS ORDERED: DEXTROSE 50%-WATER SYRINGE 12.5 GM/25 ML DOSE IV PRN (01:00)
[2019-09-25 02:11] LABS: CREATINE KINASE MB 1.89 ng/mL (<4.55)
[2019-09-25 02:18] LABS: TROPONIN I 0.304 ng/mL
[2019-09-25 07:36] LABS: ABSOLUTE EOSINOPHILS # (AUTO) 0.1 10^3/uL (0.0-0.6); ABSOLUTE LYMPHOCYTES (AUTO) 2.6 10^3/uL (0.5-4.7); ABSOLUTE MONOCYTES (AUTO) 0.6 10^3/uL (0.1-1.4); ABSOLUTE NEUT (AUTO) 4.2 10^3/uL (1.7-8.2); BASOPHILS % (AUTO) 0.5 % (0-2); EOSINOPHILS % (AUTO) 1.6 % (0-6); HEMATOCRIT 42.4 % (36.0-47.0); HEMOGLOBIN 14.2 g/dL (12.0-15.5); LYMPHOCYTES % (AUTO) 33.8 % (13-45); MEAN CORPUSCULAR HEMOGLOBIN 29.6 pg (27.0-33.4); MEAN CORPUSCULAR HGB CONC 33.4 g/dL (32.0-36.0); MEAN CORPUSCULAR VOLUME 88 fl (80-97); MONOCYTES % (AUTO) 8.2 % (3-13); PLATELET COUNT 245 10^3/uL (150-450); SEGMENTED NEUTROPHILS % (AUTO) 55.9 % (42-78); TOTAL CELLS COUNTED % (AUTO) 100 %; WHITE BLOOD COUNT 7.5 10^3/uL (4.0-10.5)
[2019-09-25 08:01] LABS: ANION GAP 11 (5-19); BLOOD UREA NITROGEN 18 mg/dL (7-20); CALCIUM 9.4 mg/dL (8.4-10.2); CARBON DIOXIDE 28 mmol/L (22-30); CHLORIDE 100 mmol/L (98-107); GLUCOSE 124 mg/dL (75-110); POTASSIUM 3.8 mmol/L (3.6-5.0)
[2019-09-25 08:07] LABS: CREATINE KINASE MB 1.66 ng/mL (<4.55); TROPONIN I 0.19 ng/mL
[2019-09-25] MEDS: INSULIN LISPRO 100 UNIT/ML 3 ML VIAL SUBCUT SCH ×2 (09:06→12:59)
[2019-09-25] MEDS: ACETAMINOPHEN 325 MG TABLET PO PRN (09:46)
[2019-09-25] MEDS: FAMOTIDINE 20 MG TABLET PO SCH (09:46)
[2019-09-25] MEDS ORDERED: GLIPIZIDE 10 MG TABLET PO SCH (10:00)
[2019-09-25] MEDS ORDERED: LISINOPRIL 10 MG TABLET PO SCH (10:00)
[2019-09-25] MEDS ORDERED: (PENDING PHARMACY ID) (Empagliflozin [Jardiance] 25 MG) PO SCH (10:00)
[2019-09-25] MEDS ORDERED: FLECAINIDE ACETATE 100 MG TABLET PO SCH (10:00)
[2019-09-25] MEDS ORDERED: ENOXAPARIN SODIUM INJ 40 MG/0.4 ML DISP.SYRIN SUBCUT SCH (10:00)
[2019-09-25] MEDS ORDERED: CHLORTHALIDONE 25 MG TABLET PO SCH (10:00)
[2019-09-25] MEDS ORDERED: METOPROLOL TARTRATE 25 MG TABLET PO SCH (10:00)
--- NOTE | 2019-09-25 10:31 | PDOC CONSULTATION ---
Consultation Consult Date: 09/25/19 Attending physician:: TREVOR MCMAHAN JR Provider Consulted: MERE DEL REAL Consult reason:: syncope History of Present Illness Admission Date/PCP: 09/24/19 18:16 JAY BRAXTON PA-C Patient complains of: "blacked out and high blood pressure at home" History of Present Illness: KIRSTIN DAVID is a 74 year old female Per outpatient cardiology note from Dr. Prather 07/29/19: "74 year-old female with history of hypertension, paroxysmal atrial fibrillation, colon cancer, diabetes, severe anxiety, GERD, hyperlipidemia, former smoker who quit more than 16 years ago and without family history of premature coronary artery disease who returns today for follow-up on paroxysmal atrial fibrillation and hypertension. The patient had been doing well until the weekend of March 29 and 2018 when she had an episode of racing heart that lasted all weekend long associated with shortness of breath and that felt like her prior episodes of atrial fibrillation. Unfortunately she did not seek medical attention. It resolved spontaneously and has not recurred. She was evaluated by Dr. Martin in May 2019 who increased her lisinopril to 20mg qd and flecainide to 100mg bid and since then has not had any palpitations however has developed upset stomach. Unfortunately she has not checked her blood pressure at home. Her echocardiogram was significant for normal ejection fraction, no significant valvular disease and RVH. Her LHC in March 2019 with normal results." Previous cardiac evaluation: [facility] on 04/09/19: -Normal coronary arteries. -LV gram: Normal LVEDP. Normal ejection fraction. Grade MR. Lexiscan nuclear stress test on 10/13/17: -No evidence of ischemia or infarct. -Normal wall motion. -Normal ejection fraction. [facility] 08/22/17 through 09/04/17: -Predominant rhythm is sinus with rapid paroxysmal atrial fibrillation with a 27% burden, lasting up to 16 hours. -8 episodes of supraventricular tachycardia. -Triggered events correlated with normal sinus rhythm, rapid A. fib and PACs. -No malignant pauses Echocardiogram on 08/22/17: -The left ventricle is normal in size. -Mild asymmetric LVH. -Ejection fraction between 60 and 65%. -RVH. -Normal wall motion maladies. -Grade 2 diastolic is unchanged. -Mild LAE. -Trace MR, mild TR, mild PI. -Small, apical pericardial effusion, hemodynamically insignificant. The patient is seen this morning with her [id number] at the bedside. The patient has no specific complaints this morning. She explains that Monday while watching the news, the "lights got dark" all of a sudden and she "blacked out" for at least a few minutes. This was not witnessed and she is not exactly certain about the timeframe. This episode was severe, not associated with any other symptoms, not made better or worse by anything. She denies having had chest pain or palpitations prior to the lights going out. She explains she has had episodes like this in the past and after her dose of flecainide was increased they had tremendously decreased and this was likely the first episode since that visit with electrophysiology. The patient explains she was scheduled for an electrophysiology visit recently which was canceled in our [place] location and had not been contacted to reschedule this; however she was having no difficulties at the time as this was a regularly scheduled follow- up. Monday the patient awoke with a swollen face and ended up checking her blood pressure which was 211/109. She explained she could not get her blood pressure down during the day so she finally presented to [facility] emergency department. The patient denies any change in her medications recently and is taking all medications as reconciled per her most recent outpatient chart. Past Medical History Cardiac Medical History: Reports: Atrial Fibrillation, Hypertension Social History Smoking Status: Former Smoker Electronic Cigarette use?: No Last Time Smoked: 18 years ago Frequency of Alcohol Use: None Hx Recreational Drug Use: No Drugs: None Hx Prescription Drug Abuse: No - Advance Directive Resuscitation Status: Full Code Family History Family History: Reviewed & Not Pertinent Parental Family History Reviewed: Yes Children Family History Reviewed: Yes Sibling(s) Family History Reviewed.: Yes Medication/Allergy Home Medications: Alprazolam 0.25 mg PO BIDP PRN 09/24/19 Chlorthalidone [Hygroton 25 mg Tablet] 25 mg PO DAILY 09/24/19 Empagliflozin [Jardiance] 25 mg PO DAILY 09/24/19 Flecainide Acetate [Tambocor 100 Mg Tablet] 200 mg PO Q12 09/24/19 Glipizide [Glucotrol] 10 mg PO DAILY 09/24/19 Lisinopril 20 mg PO Q12 09/24/19 Metoprolol Tartrate [Lopressor 25 mg Tablet] 12.5 mg PO DAILYP PRN 09/24/19 Metoprolol Tartrate [Lopressor 25 mg Tablet] 12.5 mg PO Q12 09/24/19 Pantoprazole Sodium 40 mg PO DAILY 09/24/19 Rivaroxaban [Xarelto] 20 mg PO QHS 09/24/19 Zolpidem Tartrate [Ambien 5 mg Tablet] 5 mg PO QHS MDD 10 MG 09/24/19 Allergies/Adverse Reactions: Iodine and Iodide Containing Produc Allergy (Verified 03/22/18 10:11) Penicillins Allergy (Verified 03/22/18 10:11) Review of Systems Review of Systems: 14 systems reviewed and negative except as otherwise noted above in the HPI. Physical Exam Vital Signs: Temp Pulse Resp BP Pulse Ox 97.9 F 59 L 16 133/70 H 94 09/25/19 07:45 09/25/19 07:45 09/25/19 07:45 09/25/19 07:45 09/25/19 07:45 Intake & Output 09/24/19 09/25/19 09/26/19 06:59 06:59 06:59 Intake Total 350 Balance 350 Weight 75.6 kg Review of telemetry overnight. The patient has remained in sinus rhythm with narrow QRS complex. Left bundle branch block not present when the patient init iated inpatient telemetry monitoring. Exam: General Appearance: no acute distress, well developed, well nourished, no diaphoresis. Eyes:. Pupils equal round reactive to light, no injection no jaundice. EOMI HENT: atraumatic, oropharynx is clear with moist mucous membranes and acceptable dentition. Neck: supple, no masses, no thyromegaly and normal jugular venous pressure. Lungs: clear to auscultation, no wheezing/rhonchi, normal respiratory effort. Cardiovascular: Palpation of heart: normal PMI, no thrills. Auscultation of Heart: normal rate and rhythm, normal S1 and S2, without murmurs, no S3, no S4. Carotid pulses: no bruit, normal amplitude. Abdominal aorta: no bruit, normal amplitude. Radial pulses: normal amplitude. Pedal pulses: normal amplitude. Examination of extremities for edema and/or varicosities: normal. Abdomen: normal bowel sounds, soft, non-tender, no masses, no hepatomegaly, no splenomegaly. Musculoskeletal: normal movement of all extremities. Extremities: no clubbing, no cyanosis. Integumentary: warm and dry bilaterally with no ulcers. Psychiatric: awake, alert and oriented x 3. Appropriate mood and affect. Results Laboratory Results: 09/25/19 07:24 09/25/19 07:24 09/24/19 09/24/19 09/24/19 15:10 15:10 19:38 WBC 9.7 RBC 5.05 Hgb 15.4 Hct 45.1 MCV 89 MCH 30.6 MCHC 34.2 RDW 15.3 H Plt Count 240 Seg Neutrophils % 63.2 Sodium 140.3 Potassium 3.8 Chloride 101 Carbon Dioxide 26 Anion Gap 13 BUN 17 Creatinine 0.95 Est GFR ( Amer) > 60 Glucose 163 H Calcium 10.2 Magnesium Total Bilirubin 0.8 AST 31 Alkaline Phosphatase 80 Total Protein 7.8 Albumin 4.7 TSH 1.16 09/25/19 09/25/19 07:24 07:24 WBC 7.5 RBC 4.80 Hgb 14.2 Hct 42.4 MCV 88 MCH 29.6 MCHC 33.4 RDW 15.0 H Plt Count 245 Seg Neutrophils % 55.9 Sodium 138.6 Potassium 3.8 Chloride 100 Carbon Dioxide 28 Anion Gap 11 BUN 18 Creatinine 0.77 Est GFR ( Amer) > 60 Glucose 124 H Calcium 9.4 Magnesium 2.1 Total Bilirubin AST Alkaline Phosphatase Total Protein Albumin TSH 09/24/19 09/24/19 09/25/19 15:10 19:38 01:33 CK-MB (CK-2) 1.55 1.89 Troponin I < 0.012 0.216 0.304 09/25/19 07:24 CK-MB (CK-2) 1.66 Troponin I 0.190 Current Medication List Generic Name Dose Route Start Last Admin Trade Name Freq PRN Reason Stop Dose Admin Acetaminophen 650 mg 09/24/19 18:37 09/25/19 09:46 Tylenol 325 Mg Tablet PO 10/24/19 18:36 650 mg Q4HP PRN Administration FOR PAIN Al Hydrox/Mg Hydrox/Simethicone 30 ml 09/24/19 18:37 Maalox Plus Susp 30 Udcup PO 10/24/19 18:36 Q6HP PRN HEARTBURN Alprazolam 0.25 mg 09/24/19 22:14 09/24/19 23:11 Xanax 0.25 Mg Tablet PO 10/01/19 22:13 0.25 mg BIDP PRN Administration ANXIETY Chlorthalidone 25 mg 09/25/19 10:00 09/25/19 09:47 Hygroton 25 Mg Tablet PO 10/25/19 09:59 25 mg DAILY JANET Administration Dextrose 12.5 gm 09/25/19 01:00 Dextrose Inj 50% Syringe (25 Gm/50 Ml) IV 10/25/19 00:59 PRN PRN FOR BG 50-69 IN ALERT PATIENT Protocol Dextrose 25 gm 09/25/19 01:00 Dextrose Inj 50% Syringe (25 Gm/50 Ml) IV 10/25/19 00:59 PRN PRN Protocol Famotidine 20 mg 09/24/19 22:00 09/25/19 09:46 Pepcid 20 Mg Tablet PO 10/24/19 21:59 20 mg Q12 JANET Administration Flecainide Acetate 200 mg 09/25/19 10:00 09/25/19 09:51 Tambocor 100 Mg Tablet PO 10/25/19 09:59 Not Given Q12 JANET Glipizide 10 mg 09/25/19 10:00 09/25/19 09:43 Glucotrol 10 Mg Tablet PO 10/25/19 09:59 10 mg DAILY JANET Administration Glucagon 1 mg 09/25/19 01:00 Glucagen Inj 1 Mg Vial IM 10/25/19 00:59 PRN PRN EVALUATE FOR BG < 70 Protocol Glucose 15 gm 09/25/19 01:00 Glutose 40% Gel 15 Gm Tube PO 10/25/19 00:59 PRN PRN FOR BG 50-69 IN ALERT PATIENT Protocol Glucose 30 gm 09/25/19 01:00 Glutose 40% Gel 15 Gm Tube PO 10/25/19 00:59 PRN PRN FOR BG < 50 IN ALERT PATIENT Protocol Hydralazine HCl 10 mg 09/24/19 18:52 09/24/19 19:24 Apresoline Inj/Pf 20 Mg/1 Ml Sdv IV 10/24/19 18:51 10 mg Q4HP PRN Administration Give For Sbp > 160 / Dbp >90 Insulin Human Lispro 0 - 12 unit 09/25/19 08:00 09/25/19 09:06 Humalog Insulin 100 Unit/1 Ml 3 Ml Vial SUBCUT 10/25/19 07:59 Not Given ACHS [facility] Protocol Lisinopril 20 mg 09/25/19 10:00 09/25/19 09:45 Prinivil 10 Mg Tablet PO 10/25/19 09:59 20 mg Q12 JANET Administration Metoprolol Tartrate 12.5 mg 09/25/19 10:00 09/25/19 09:46 Lopressor 25 Mg Tablet PO 10/25/19 09:59 12.5 mg Q12 JANET Administration Morphine Sulfate 4 mg 09/24/19 18:46 Morphine 10 Mg/Ml Inj IV 10/01/19 18:45 Q4HP PRN FOR PAIN Nitroglycerin 1 tab 09/24/19 18:46 Nitrostat 0.4 Mg (1/150 Gr) Tabs 25/Bottle SL 10/24/19 18:45 Q5MP PRN FOR CHEST PAIN Oxycodone/Acetaminophen 1 tab 09/24/19 18:37 Percocet 5-325 Mg Tablet PO 10/01/19 18:36 Q6HP PRN FOR PAIN Patient Own Medication 25 mg 09/25/19 10:00 Empagliflozin [Jardiance] PO 10/25/19 09:59 DAILY [facility] Rivaroxaban 20 mg 09/24/19 22:00 09/24/19 23:02 Xarelto 10 Mg Tablet PO 10/24/19 21:59 20 mg QHS [facility] Administration Zolpidem Tartrate 5 mg 09/25/19 22:00 Ambien 5 Mg Tablet PO 10/02/19 21:59 QHS [facility] EKG Comments: Personal interpretation of EKG September 24, 2019 at 1520 with sinus rhythm 95 bpm, left bundle branch block QRS 168 ms QTC 533. Compared with EKG from outpatient chart dated 07/29/2019 this is a significant change. Her last EKG in July was sinus bradycardia 56 bpm, normal DC interval, normal axis with QRS 84 ms, anteroseptal T wave inversions, QTc 455 ms. Impressions: Chest X-Ray 09/24/19 15:04 IMPRESSION: MILD CARDIOMEGALY. DIFFUSE INTERSTITIAL PROMINENCE PROBABLY DUE TO SCARRING. CANNOT EXCLUDE A COMPONENT OF INTERSTITIAL EDEMA. Head CT 09/24/19 15:04 IMPRESSION: MILD CHRONIC CHANGES OF ATROPHY AND MICROVASCULAR ISCHEMIA. NO ACUTE PROCESS. EVIDENCE OF ACUTE STROKE: NO. Assessment & Plan - Diagnosis (1) Syncope and collapse Is this a current diagnosis for this admission?: Yes Plan: Patient presented with a new left bundle branch block after syncopal episode at home. Her most recent dosing of flecainide was 100 mg. Electrophysiology consultation regarding further evaluation for her syncopal episode in the setting of new conduction abnormality which is intermittent. I would like the patient to be evaluated for possible LINQ placement prior to discharge and management of antiarrhythmic medicines for paroxysmal atrial fibrillation -Flecainide being held at this time. Telemetry reveals sinus rhythm with narrow QRS complex. Electrolytes with K 3.8 and magnesium 2.1 on admission. (2) Hypertensive emergency without congestive heart failure Is this a current diagnosis for this admission?: Yes Plan: Patient is normotensive this morning on oral therapy. Patient will continue outpatient antihypertensive regimen at this time. (3) Elevated troponin I level Is this a current diagnosis for this admission?: Yes Plan: Small troponin rise to 0.2 and downtrending on last set is consistent with a type II process, supply demand mismatch, in the setting of angiographically normal coronary arteries on cath May 2019 in the setting of systolic blood pressure in the 200s and diastolics over 100. - no medication changes at this time; cont bb; patient already fully anticoagulated on Xarelto so would hold on addition of aspirin at this time. (4) PAF (paroxysmal atrial fibrillation) Is this a current diagnosis for this admission?: Yes Plan: Being managed with flecainide as an outpatient. The patient is also on Xarelto 20 mg daily for stroke risk reduction in the setting of elevated chads 2 Vascor. Continue Xarelto dosing based on patient's creatinine clearance. 20mg daily at this time (5) Primary hypertension Is this a current diagnosis for this admission?: Yes Plan: -Patient normotensive today. Please continue her outpatient antihypertensive regimen. (6) HLD (hyperlipidemia) Qualifiers: Hyperlipidemia type: mixed hyperlipidemia Qualified Code(s): E78.2 - Mixed hyperlipidemia Is this a current diagnosis for this admission?: Yes Plan: Continue high intensity statin therapy, she is on atorvastatin 40 mg nightly at home. (7) DM type 2 (diabetes mellitus, type 2) Qualifiers: Diabetes mellitus detention insulin use: without terminal press operator use Diabetes mellitus complication status: without complication Qualified Code(s): E11.9 - Type 2 diabetes mellitus without complications Is this a current diagnosis for this admission?: Yes Plan: Management per primary team. - Notes Notes: Case discussed with nursing as well as primary team this morning. I have called to request a transfer to [facility] in [place] for further evaluation and management by the electrophysiology staff. I have already spoken with the hospitalist team at [facility] and I am awaiting a call back. Assessment and plan was also fully discussed with the patient and her [id number] at the bedside this morning. Thank you for the consultation, please call with any questions.
--- NOTE | 2019-09-25 13:21 | EKG REPORT ---
SEVERITY:- ABNORMAL ECG - SINUS RHYTHM PROBABLE LEFT ATRIAL ABNORMALITY ABNORMAL T, PROBABLE ISCHEMIA, ANT-LAT LEADS PROLONGED QT INTERVAL : Confirmed by: Mich Corey MD 25-Sep-2019 13:20:47
--- NOTE | 2019-09-25 13:44 | PDOC TRANSFER SUMMARY ---
General Admission Date/PCP: 09/24/19 18:16 JAY BRAXTON PA-C Transfer Date: 09/25/19 Accepting Facility: [facility] Accepting Physician: Stephan De La Rosa MD Resuscitation Status: Full Code - Transfer Diagnosis (1) Chronic paroxysmal atrial fib Is this a current diagnosis for this admission?: Yes (2) Chest pain Is this a current diagnosis for this admission?: Yes (3) Elevated blood pressure reading Is this a current diagnosis for this admission?: Yes (4) Syncope and collapse Is this a current diagnosis for this admission?: Yes (5) DM type 2 (diabetes mellitus, type 2) Is this a current diagnosis for this admission?: Yes (6) Elevated troponin I level Is this a current diagnosis for this admission?: Yes (7) HLD (hyperlipidemia) Is this a current diagnosis for this admission?: Yes - Transfer Medications Home Medications: Alprazolam 0.25 mg PO BIDP PRN 09/24/19 Chlorthalidone [Hygroton 25 mg Tablet] 25 mg PO DAILY 09/24/19 Empagliflozin [Jardiance] 25 mg PO DAILY 09/24/19 Flecainide Acetate [Tambocor 100 mg Tablet] 200 mg PO Q12 09/24/19 Glipizide [Glucotrol] 10 mg PO DAILY 09/24/19 Lisinopril 20 mg PO Q12 09/24/19 Metoprolol Tartrate [Lopressor 25 mg Tablet] 12.5 mg PO DAILYP PRN 09/24/19 Metoprolol Tartrate [Lopressor 25 mg Tablet] 12.5 mg PO Q12 09/24/19 Pantoprazole Sodium 40 mg PO DAILY 09/24/19 Rivaroxaban [Xarelto] 20 mg PO QHS 09/24/19 Zolpidem Tartrate [Ambien 5 mg Tablet] 5 mg PO QHS MDD 10 MG 09/24/19 Transfer Medications: Current Medications Acetaminophen (Tylenol 325 Mg Tablet) 650 mg PO Q4HP PRN PRN Reason: FOR PAIN Stop: 10/24/19 18:36 Last Admin: 09/25/19 09:46 Dose: 650 mg Documented by: Al Hydrox/Mg Hydrox/Simethicone (Maalox Plus Susp 30 Udcup) 30 ml PO Q6HP PRN PRN Reason: HEARTBURN Stop: 10/24/19 18:36 Alprazolam (Xanax 0.25 Mg Tablet) 0.25 mg PO BIDP PRN PRN Reason: ANXIETY Stop: 10/01/19 22:13 Last Admin: 09/24/19 23:11 Dose: 0.25 mg Documented by: Chlorthalidone (Hygroton 25 Mg Tablet) 25 mg PO DAILY [facility] Stop: 10/25/19 09:59 Last Admin: 09/25/19 09:47 Dose: 25 mg Documented by: Dextrose (Dextrose Inj 50% Syringe (25 Gm/50 Ml)) 12.5 gm IV PRN PRN; Protocol PRN Reason: FOR BG 50-69 IN ALERT PATIENT Stop: 10/25/19 00:59 Dextrose (Dextrose Inj 50% Syringe (25 Gm/50 Ml)) 25 gm IV PRN PRN; Protocol Stop: 10/25/19 00:59 Famotidine (Pepcid 20 Mg Tablet) 20 mg PO Q12 JANET Stop: 10/24/19 21:59 Last Admin: 09/25/19 09:46 Dose: 20 mg Documented by: Flecainide Acetate (Tambocor 100 Mg Tablet) 200 mg PO Q12 [facility] Stop: 10/25/19 09:59 Last Admin: 09/25/19 09:51 Dose: Not Given Documented by: Glipizide (Glucotrol 10 Mg Tablet) 10 mg PO DAILY [facility] Stop: 10/25/19 09:59 Last Admin: 09/25/19 09:43 Dose: 10 mg Documented by: Glucagon (Glucagen Inj 1 Mg Vial) 1 mg IM PRN PRN; Protocol PRN Reason: EVALUATE FOR BG < 70 Stop: 10/25/19 00:59 Glucose (Glutose 40% Gel 15 Gm Tube) 15 gm PO PRN PRN; Protocol PRN Reason: FOR BG 50-69 IN ALERT PATIENT Stop: 10/25/19 00:59 Glucose (Glutose 40% Gel 15 Gm Tube) 30 gm PO PRN PRN; Protocol PRN Reason: FOR BG < 50 IN ALERT PATIENT Stop: 10/25/19 00:59 Hydralazine HCl (Apresoline Inj/Pf 20 Mg/1 Ml Sdv) 10 mg IV Q4HP PRN PRN Reason: Give For Sbp > 160 / Dbp >90 Stop: 10/24/19 18:51 Last Admin: 09/24/19 19:24 Dose: 10 mg Documented by: Insulin Human Lispro (Humalog Insulin 100 Unit/1 Ml 3 Ml Vial) 0 - 12 unit [facility]; Protocol Stop: 10/25/19 07:59 Last Admin: 09/25/19 12:59 Dose: Not Given Documented by: Lisinopril (Prinivil 10 Mg Tablet) 20 mg PO Q12 [facility] Stop: 10/25/19 09:59 Last Admin: 09/25/19 09:45 Dose: 20 mg Documented by: Metoprolol Tartrate (Lopressor 25 Mg Tablet) 12.5 mg PO Q12 [facility] Stop: 10/25/19 09:59 Last Admin: 09/25/19 09:46 Dose: 12.5 mg Documented by: Morphine Sulfate (Morphine 10 Mg/Ml Inj) 4 mg IV Q4HP PRN PRN Reason: FOR PAIN Stop: 10/01/19 18:45 Nitroglycerin (Nitrostat 0.4 Mg (1/150 Gr) Tabs 25/Bottle) 1 tab SL Q5MP PRN PRN Reason: FOR CHEST PAIN Stop: 10/24/19 18:45 Oxycodone/Acetaminophen (Percocet 5-325 Mg Tablet) 1 tab PO Q6HP PRN PRN Reason: FOR PAIN Stop: 10/01/19 18:36 Patient Own Medication (Empagliflozin [Jardiance]) 25 mg PO DAILY [facility] Stop: 10/25/19 09:59 Rivaroxaban (Xarelto 10 Mg Tablet) 20 mg PO QHS [facility] Stop: 10/24/19 21:59 Last Admin: 09/24/19 23:02 Dose: 20 mg Documented by: Zolpidem Tartrate (Ambien 5 Mg Tablet) 5 mg PO QHS [facility] Stop: 10/02/19 21:59 - Allergies Allergies/Adverse Reactions: Iodine and Iodide Containing Produc Allergy (Verified 03/22/18 10:11) Penicillins Allergy (Verified 03/22/18 10:11) - Diet/Activity Discharge Diet: As Tolerated Hospital Course Hospital Course: 09/25/2019 Patient presented to the emergency room last night complaining of a syncopal episode, or some sort of vasovagal event occurred the night before seen anywhere from seconds to minutes. Reports that she has had these in the past. States that her vision becomes tunneled, feels lightheaded and then has the event. The day of admission she had checked her blood pressure at home and it was greatly elevated 211/109. Actually come to the emergency room for her elevated blood pressure. Denies chest pain, , nausea, vomiting or shortness of breath. Patient has a history of having a normal cardiac cath at [facility] in May 2019, and following that was placed to the care of Dr. Martin. Placed on medications and unfortunately has not followed up with Dr. Martin due to office scheduling difficulties. My understanding that the emergency room physician last night spoke to Dr. Prather the ship mate here and was told it would be acceptable for the patient to be admitted to our facility. Today Dr. Alvarado has seen the patient and recommends that the patient be transferred to [facility] where a EP physician can see the patient and attend to her possible loop recorder and medication adjustments. She is medically stable for transfer. Physical Exam Vital Signs: Temp Pulse Resp BP Pulse Ox 97.9 F 59 L 16 133/70 H 94 09/25/19 07:45 09/25/19 07:45 09/25/19 07:45 09/25/19 07:45 09/25/19 07:45 Intake & Output 09/24/19 09/25/19 09/26/19 06:59 06:59 06:59 Intake Total 350 Balance 350 Weight 75.6 kg General appearance: PRESENT: no acute distress, other - Patient denies chest pain Respiratory exam: PRESENT: clear to auscultation matthew. ABSENT: rales, rhonchi, wheezes Cardiovascular exam: PRESENT: RRR. ABSENT: diastolic murmur, rubs, systolic mu rmur Neurological exam: PRESENT: alert, awake, oriented to person, oriented to place, oriented to time, oriented to situation, CN II-XII grossly intact. ABSENT: motor sensory deficit Psychiatric exam: PRESENT: appropriate affect, normal mood. ABSENT: homicidal ideation, suicidal ideation Results Laboratory Results: 09/25/19 07:24 09/25/19 07:24 09/24/19 09/24/19 09/24/19 15:10 15:10 19:38 WBC 9.7 RBC 5.05 Hgb 15.4 Hct 45.1 MCV 89 MCH 30.6 MCHC 34.2 RDW 15.3 H Plt Count 240 Seg Neutrophils % 63.2 Sodium 140.3 Potassium 3.8 Chloride 101 Carbon Dioxide 26 Anion Gap 13 BUN 17 Creatinine 0.95 Est GFR ( Amer) > 60 Glucose 163 H Calcium 10.2 Magnesium Total Bilirubin 0.8 AST 31 Alkaline Phosphatase 80 Total Protein 7.8 Albumin 4.7 TSH 1.16 09/25/19 09/25/19 07:24 07:24 WBC 7.5 RBC 4.80 Hgb 14.2 Hct 42.4 MCV 88 MCH 29.6 MCHC 33.4 RDW 15.0 H Plt Count 245 Seg Neutrophils % 55.9 Sodium 138.6 Potassium 3.8 Chloride 100 Carbon Dioxide 28 Anion Gap 11 BUN 18 Creatinine 0.77 Est GFR ( Amer) > 60 Glucose 124 H Calcium 9.4 Magnesium 2.1 Total Bilirubin AST Alkaline Phosphatase Total Protein Albumin TSH 09/24/19 09/24/19 09/25/19 15:10 19:38 01:33 CK-MB (CK-2) 1.55 1.89 Troponin I < 0.012 0.216 0.304 09/25/19 07:24 CK-MB (CK-2) 1.66 Troponin I 0.190 Impressions: Chest X-Ray 09/24/19 15:04 IMPRESSION: MILD CARDIOMEGALY. DIFFUSE INTERSTITIAL PROMINENCE PROBABLY DUE TO SCARRING. CANNOT EXCLUDE A COMPONENT OF INTERSTITIAL EDEMA. Head CT 09/24/19 15:04 IMPRESSION: MILD CHRONIC CHANGES OF ATROPHY AND MICROVASCULAR ISCHEMIA. NO ACUTE PROCESS. EVIDENCE OF ACUTE STROKE: NO. Plan Time Spent: Greater than 30 Minutes - [facility] service. It was Dr. Alvarado's been and that the patient should not be discharged home and that she should be transferred to a facility that has a EP physician
[2019-09-25 13:46] VITALS: BP 151/73
[2019-09-25] MEDS ORDERED: ZOLPIDEM TARTRATE 5 MG TABLET PO SCH (22:00)
== END 2019-09-25 15:35 | disposition short-term general hospital (02) ==
LOC: ER 14:43 → EH 18:16 → 3N 20:39
PROVIDERS: ADMIT Internal Medicine; ATTEND Internal Medicine
DX: I48.0 Paroxysmal atrial fibrillation (principal); R07.89 Other chest pain; R55 Syncope and collapse; E11.9 Type 2 diabetes mellitus without complications; I10 Essential (primary) hypertension; R79.89 Other specified abnormal findings of blood chemistry; E78.2 Mixed hyperlipidemia; I44.7 Left bundle-branch block, unspecified; F41.9 Anxiety disorder, unspecified; R00.1 Bradycardia, unspecified; R11.0 Nausea; Z79.899 Other long term (current) drug therapy; Z79.84 Long term (current) use of oral hypoglycemic drugs; Z85.038 Personal history of other malignant neoplasm of large intestine; Z87.891 Personal history of nicotine dependence
CPT/HCPCS: 93005 ×2; 99285; 36415 ×2; 82553 ×2; 83735; 84443; 85025 ×2; 80048; 80053; 84484 ×2; 71046; 70450; 93010 ×2; G0378 ×3; A9270 ×14; J0360; J3490; S0119